=== PATIENT | female | born 1975 | race Caucasian/White ===

== ENCOUNTER 2016-11-21 15:10 | Emergency (ER) | payer BC ==
[2016-11-21 15:41] VITALS: TEMP 98.4; BMI 39.5
--- NOTE | 2016-11-21 16:36 | EDPRACDOC ---
- General Information Chief Complaint: Knee Pain Stated Complaint: LT UPPER LEG SWOLLEN & PAINFUL NO INJURY Time Seen by Provider: 11/21/16 16:30 Mode of Arrival: Car Home Medications: Home Medications Ascorbic Acid [Vitamin C] 500 mg PO DAILY 11/21/16 Naproxen Sodium 500 mg PO BID PRN #20 tablet.sa 11/21/16 Allergies/Adverse Reactions: Allergies Allergy/AdvReac Type Severity Reaction Status Date / Time No Known Allergies Allergy Verified 11/21/16 15:36 - History of Present Illness Onset: 1 month HPI: PT COMPLAINS OF INCREASING PAIN IN LEFT KNEE X 1 MTH, NO KNOWN INJURY, STATES PAIN IS WORSE WITH STANDING AND BENDING HER KNEE, NO MEDS TAKEN FOR SAME. PT STATES PAIN IS SHARP AND SEVERE, RADIATES TO HER THIGH, STATES HER LEFT THIGH IS "SWOLLEN". PT WENT TO URGENT CARE TODAY WAS SENT TO THE ED FOR FURTHER EVALUATION. Knee Problem Location: Left Mechanism: Reports: Unknown Circumstances: Reports: Spontaneous Relevant History: Reports: None Able to Bear Weight: Fully Pain Severity: Reports: Severe Associated Signs & Symptoms: Reports: Swelling, Thigh Pain ED Past Medical History - History Reviewed Yes Nurses notes reviewed and agree except as marked - Patient Medical History GI/ History: Reports: Gastroesophageal Reflux Psychological History: Reports: Depression, Bipolar Disorder Systemic History: Denies: Cancer Surgical History: Reports: Tonsillectomy/Adnoidectomy - Family Medical History Reports: Hypertension (mother/father), Cancer (father (prostate)), Stroke ( father), Cardiac Disorders (father). Denies: Diabetes - Social Medical History Smoking Status: Heavy tobacco smoker (5 or more cigarettes/day or daily pipe/ cigar) EDM Review of Systems - Review of Systems Neurological: negative: Dizziness, Headache, Numbness, Weakness Musculoskeletal: Knee, Leg Integumentary: No Symptoms Reported - Physical Exam Constitutional: Alert (Awake), No apparent distress Oriented to: Time, Person, Place Last recorded Vital Signs: Last Vital Signs Temp 98.4 F 11/21/16 15:36 Pulse 110 11/21/16 16:30 Resp 20 11/21/16 16:30 BP 147/95 11/21/16 16:30 Pulse Ox 98 11/21/16 16:30 Oxygen Pulse Oxygen Saturation 98 O2 Device Room Air Oxygen Flow Rate Fraction of Inspired Oxygen ( FIO2) - HEENT Head: Normal ( normocephalic) - Integumentary Skin: Normal, Warm, Dry Lymphatics: Normal (no adenopathy) - Neurologic Memory Impaired: Normal Motor Function: Normal (Normal tone, Pulses 2+ No cyanosis or edema, FROM) Cranial Nerve: Normal (CN II-X11 intact sensation, strength 5/5) Cerebellar: Normal Mood Description: Normal Perception: Normal ED Knee Problem Phys Exam - Musculoskeletal Knee: Moderate Tenderness (MEDIALLY AND POSTERIORLY). negative: Swelling, Deformity, Joint Effusion, Limited ROM Knee Ligaments: Normal Knee Meniscus: Normal Thigh: Normal. negative: Swelling, Deformity, Mild Tenderness Lower Leg: Normal, Other (NAVIN'S SIGN NEG). negative: Swelling, Deformity Distal Function/Circulation: Normal, Capillary Refill. negative: Motor Deficit , Pulse Deficit, Sensory Deficit - Integumentary Skin: Normal - Differential Diagnosis Contusion, DJD Arthritis, Meniscus Injury, Sprain - Diagnostic Imaging LEFT KNEE Image interpreted by: Radiologist LEFT KNEE - COMPLETE 4+ VIEW COMPARISON: None. FINDINGS: The mineralization and alignment are normal. There is no evidence of acute fracture or dislocation. The joint spaces appear maintained. No significant joint effusion or focal soft tissue abnormality seen. IMPRESSION: Negative left knee radiographs. - Additional Information PAIN IS LONG STANDING, NO APPRECIABLE SWELLING TO THIGH AT THIS POINT, KNEE IS TTP MEDIALLY AND POSTERIORLY, NO CALF PAIN, SWELLING OR TENDERNESS, NAVIN'S SIGN NEG, NOT LIKELY DVT, MORE LIKELY MENISCUS INJURY OR LIEBERMAN'S CYST, WILL REFER TO ORTHO. Decision Time to Discharge: 17:10 - Departure Disposition: Home Condition: Stable Final Diagnosis: Left knee pain Qualifiers: Chronicity: acute Qualified Code(s): M25.562 - Pain in left knee Instructions: RICE: Routine Care for Injuries Education/Counseling Given To: Patient Education/Counseling Given Regarding: Diagnosis, Treatment, Prognosis, Follow Up Referrals: Eduard Ramírez MD [Staff Physician] - One Week Prescriptions: Naproxen Sodium 500 mg PO BID PRN #20 tablet.sa PRN Reason: Pain Additional Instructions: ELEVATE YOUR KNEE, APPLY COLD COMPRESSES, RETURN TO THE ED FOR ANY WORSENING SYMPTOMS OR CONCERNS.
--- NOTE | 2016-11-21 17:05 | DIRPT ---
CLINICAL DATA: Increasing left knee pain and swelling for 1 month. No known injury. EXAM: LEFT KNEE - COMPLETE 4+ VIEW COMPARISON: None. FINDINGS: The mineralization and alignment are normal. There is no evidence of acute fracture or dislocation. The joint spaces appear maintained. No significant joint effusion or focal soft tissue abnormality seen. IMPRESSION: Negative left knee radiographs. Electronically Signed By: Shady Zepeda M.D. On: 11/21/2016 17:03
[2016-11-21 17:32] VITALS: BP 145/84; PULSE 84
== END 2016-11-21 17:35 | disposition home or self-care (01) ==
LOC: EDMC 15:10
DX: M25.562 Pain in left knee (principal)
CPT/HCPCS: 99283